=== PATIENT | female | born 1970 | race Caucasian/White ===

== ENCOUNTER → 2017-02-24 | Outpatient (CLI) | payer BC ==
[2013-10-11 21:29] VITALS: BP 108/57
--- NOTE | 2017-02-24 09:14 | KCIC ---
DATE: 02/24/2017. EXAM: MAMMO ALEENA SCREENING BILATERAL. HISTORY: Routine mammographic screening. COMPARISON: 02/24/2016, 02/18/2015, 02/13/2014. This study was interpreted with the benefit of Computerized Aided Detection (CAD). FINDINGS: The breast parenchyma shows scattered fibroglandular densities. Breast parenchyma level B.. A suggested nodule at the posterior margin of the field of view laterally on the left CC view is consistent with parenchyma on the tomographic images. There are no suspicious masses, calcifications or architectural distortion. Parenchymal density is decreased. BI-RADS CATEGORY: 2 BENIGN FINDING(S). RECOMMENDED FOLLOW-UP: 12M 12 MONTH FOLLOW-UP. PQRS compliance statement: Patient information was entered into a reminder system with a target due date 02/24/2018 for the next mammogram. Mammography is a sensitive method for finding small breast cancers, but it does not detect them all and is not a substitute for careful clinical examination. A negative mammogram does not negate a clinically suspicious finding and should not result in delay in biopsying a clinically suspicious abnormality. "Our facility is accredited by the [employer] Mammography [employer]."
== END | disposition home or self-care (01) ==
LOC: KCIC MAMMO 07:56
PROVIDERS: ATTEND Family Medicine
DX: Z12.31 Encounter for screening mammogram for malignant neoplasm of breast (principal)
CPT/HCPCS: 77063; G0202; 77067

== ENCOUNTER → 2018-02-28 | Outpatient (CLI) | payer BC ==
[2013-10-11 21:29] VITALS: BP 108/57
--- NOTE | 2018-02-28 15:17 | KCIC ---
3d digital tomography Bilateral History: Routine screening Technique: Bilateral 3d digital tomographic views were obtained with [employer] and reviewed on a [employer] workstation. In addition, CAD - computer aided detection was utilized. Comparison: February 24, 2016. Findings: Breast Tissue Density C : The breast tissue is heterogeneously dense. Scattered fibroglandular elements may obscure underlying pathology. There are no suspicious masses, microcalcifications or areas of architectural distortion. Impression: No suspicious findings. BI-RADS Category 1: Negative. Normal interval followup. The patient will receive a letter with the results in the mail. Your mammogram demonstrates that you have dense breast tissue, which could hide abnormalities, and if you have other risk factors for breast cancer that have been identified, you might benefit from supplemental screening tests that may be suggested by your ordering physician. Dense breast tissue, in and of itself, is a relatively common condition. This information is not provided to cause undue concern, but rather to raise your awareness and to promote discussion with your physician regarding the presence of other risk factors, in addition to dense breast tissue. A report of your mammography results will be sent to you and your physician. You should contact your physician if you have any questions or concerns regarding this report. A mammogram does not have 100% sensitivity and therefore a negative imaging study should not delay further work up of a suspicious abnormality. Patient information is entered into the [facility] reminder system using [employer] with a target due date for the next screening mammogram. The patient will receive a reminder. "Our facility is accredited by the [employer]amm[employer]." Electronically signed by: Santos Cruz III, MD (02/28/2018 3:14 PM) [id number]
== END | disposition home or self-care (01) ==
LOC: KCIC MAMMO 09:02
PROVIDERS: ATTEND Family Medicine
DX: Z12.31 Encounter for screening mammogram for malignant neoplasm of breast (principal)
CPT/HCPCS: 77063; 77067

== ENCOUNTER → 2019-03-07 | Outpatient (CLI) | payer BC ==
[2013-10-11 21:29] VITALS: BP 108/57
--- NOTE | 2019-03-07 18:40 | KCIC ---
Bilateral digital screening mammograms with 3-D tomosynthesis: Reason for examination: Routine screening. Comparison is made to previous studies dated 02/28/2018 and 02/24/2017. Bilateral mammograms in CC and oblique projections were obtained with 2-D imaging and 3-D tomosynthesis imaging on a Siemens Inspiration unit and reviewed on the workstation. Interpretation was made with the benefit of CAD. The skin and nipples show no abnormalities. No abnormal axillary lymph nodes are seen. The breast parenchyma shows scattered fatty and fibroglandular density. (Breast density: Category B.) There are no dominant masses, suspicious calcifications or architectural distortion. Impression: No evidence of malignancy. Recommend routine screening. BI-RAD Category 2: Benign. "Our facility is accredited by the [employer] Mammography [employer]." This patient's information has been entered into a reminder system for the patient to be notified with the results of her examination and a target date for the next mammogram. Electronically signed by: Day Ordaz MD (03/07/2019 6:37 PM) [id number]
== END | disposition home or self-care (01) ==
LOC: KCIC MAMMO 12:21
PROVIDERS: ATTEND Family Medicine
DX: Z12.31 Encounter for screening mammogram for malignant neoplasm of breast (principal)
CPT/HCPCS: 77063; 77067

== ENCOUNTER → 2020-03-12 | Outpatient (CLI) | payer BC ==
[2013-10-11 21:29] VITALS: BP 108/57
--- NOTE | 2020-03-12 19:42 | KCIC ---
Bilateral digital screening mammograms with 3-D tomosynthesis: Reason for examination: Routine screening. Comparison is made to previous studies dated back to 02/24/2016. Bilateral mammograms in CC and oblique projections were obtained with 2-D imaging and 3-D tomosynthesis imaging on a Siemens Inspiration unit and reviewed on the workstation. Interpretation was made with the benefit of CAD. The skin and nipples show no abnormalities. No abnormal axillary lymph nodes are seen. The breast parenchyma shows scattered fatty and fibroglandular density. (Breast density: Category B.) There is some nodularity posterior inferiorly in the left breast on oblique view which does not persist with tomosynthesis and shows no correlate on cc view. This probably represents superimposition of tissues. There are no other dominant masses, suspicious calcifications or architectural distortion. Impression: No evidence of malignancy. Recommend routine screening. BI-RAD Category 2: Benign. "Our facility is accredited by the [employer] Mammography [employer]." This patient's information has been entered into a reminder system for the patient to be notified with the results of her examination and a target date for the next mammogram. Electronically signed by: Day Ordaz MD (03/12/2020 7:39 PM) [id number]
== END ==
LOC: KCIC MAMMO 12:26
PROVIDERS: ATTEND Obstetrics & Gynecology
DX: Z12.31 Encounter for screening mammogram for malignant neoplasm of breast (principal)
CPT/HCPCS: 77063; 77067

== ENCOUNTER → 2020-11-19 | Outpatient (CLI) | payer BC ==
[2013-10-11 21:29] VITALS: BP 108/57
--- NOTE | 2020-11-19 15:26 | KCIC ---
EXAM: Chest, 2 views. HISTORY: Shortness of air. COMPARISON: None. FINDINGS: 2 views of the chest are obtained. There is no infiltrate, pleural effusion or pneumothorax . The heart is normal in size. IMPRESSION: No acute pulmonary finding. Electronically signed by: Jessica Masters MD (11/19/2020 3:23 PM) [id number]
== END ==
LOC: KCIC 14:53
PROVIDERS: ATTEND Family Medicine
DX: R06.02 Shortness of breath (principal)
CPT/HCPCS: 71046

== ENCOUNTER → 2021-02-10 | Outpatient (CLI) | payer OTHER ==
[2013-10-11 21:29] VITALS: BP 108/57
--- NOTE | 2021-02-10 11:21 | KCIC ---
CT for coronary artery calcium scoring, without IV contrast, 02/10/2021 11:17 AM INDICATION: Reason: Cardiovascular screening. / Spl. Instructions: / History: Technique: Noncontrast CT images through the coronary arteries was performed . Findings: No significant noncardiac findings are identified. Visual inspection of the coronary arteries demonstrates no gross calcification. The remaining coronary arteries are without discernible calcified plaque. The computer-generated calcium scoring utilizing AJ-130 criteria are as follows: Left Main Artery: 0. Left Anterior Descending Artery: 0. Left Circumflex Artery: 0. Right Coronary Artery: 0. The total calcium score is 0. Impression: Your total calcium score is 0. No plaque is present. The chance of significant heart disease is less than 5%, and corresponds to a very low risk for a myocardial infarction Table: 0: No plaque is present. The chance of significant heart disease is less than 5%, and corresponds to a very low risk for a myocardial infarction. 1-10: A small amount of plaque is present. The chance of significant heart disease is less than 10%, and corresponds to a low risk for a myocardial infarction. 11-100: Plaque is present. This correlates with mild heart disease and a moderate risk for a myocardi al infarction. 101-400: A moderate amount of plaque is present. This correlates with heart disease, and a moderate t o high risk for a myocardial infarction. Over 400: A large amount of plaque is present. This correlates with a greater than 90% chance of a h igh grade stenosis. The risk for myocardial infarction is high. CT DOSING PQRS STATEMENT: One or more of the following individualized dose reduction techniques were utilized for this examinat ion: 1. Automated exposure control 2. Adjustment of the mA and/or kV according to patient size 3. Use of iterative reconstruction technique Electronically signed by: Earle Bravo MD (02/10/2021 11:18 AM) [id number]
== END ==
LOC: KCIC CT 10:49
PROVIDERS: ATTEND Obstetrics & Gynecology
DX: Z13.6 Encounter for screening for cardiovascular disorders (principal); R07.9 Chest pain, unspecified; R10.13 Epigastric pain; N71.1 Chronic inflammatory disease of uterus
CPT/HCPCS: 75571

== ENCOUNTER → 2021-02-17 | Outpatient (CLI) | payer BC ==
[2013-10-11 21:29] VITALS: BP 108/57
[~2021-02-17] MED LIST: IOHEXOL 240 MG/ML 50ML VIAL. PO ONE; IOHEXOL 300 MG/ML 100ML VIAL. IV ONE
--- NOTE | 2021-02-17 15:08 | KCIC ---
EXAMINATION: CT ABDOMEN+PELVIS W CLINICAL HISTORY: Epigastric pain, chronic endometriosis. TECHNIQUE: CT of the abdomen and pelvis was performed using standard technique, scanning from just ab ove the dome of the diaphragm to the symphysis pubis following administration of intravenous contrast . CT Dose Reduction Employed: One or more of the following individualized dose reduction techniques wer e utilized for this examination: 1. Automated exposure control 2. Adjustment of the mA and/or kV ac cording to patient size 3. Use of iterative reconstruction technique. COMPARISON: None FINDINGS: Mild dependent bibasilar subsegmental atelectasis. Mildly dilated common bile duct, nonspecific. Minimally distended gallbladder. No intrahepatic biliar y ductal dilation. No calcified stones visualized in the gallbladder or common bile duct. Liver, panc reas, spleen, adrenal glands, and kidneys unremarkable. Mildly filled urinary bladder. Uterus and ovaries unremarkable. No bowel dilation or definite wall thickening. Appendix within normal limits. No abdominal aortic or iliac artery aneurysm. Partially visualized degenerative changes in the thoracic spine. IMPRESSION: Mildly dilated common bile duct without evidence of cholecystitis or choledocholithiasis on limited C T evaluation, nonspecific. Recommend clinical correlation and consider MRCP for further evaluation as indicated. Electronically signed by: Indra Escobar DO (02/17/2021 3:05 PM) [facility]
== END ==
LOC: KCIC CT 09:41
PROVIDERS: ATTEND Obstetrics & Gynecology
DX: K83.8 Other specified diseases of biliary tract (principal); K82.8 Other specified diseases of gallbladder; N71.1 Chronic inflammatory disease of uterus; J98.11 Atelectasis; M47.814 Spondylosis without myelopathy or radiculopathy, thoracic region
CPT/HCPCS: 74177; Q9966; Q9967

== ENCOUNTER → 2021-03-19 | Outpatient (CLI) | payer BC ==
[2013-10-11 21:29] VITALS: BP 108/57
--- NOTE | 2021-03-19 15:43 | KCIC ---
Bilateral digital screening mammograms with 3-D tomosynthesis: Reason for examination: Routine screening. Comparison is made to previous studies dated back to 02/18/2015. Bilateral mammograms in CC and oblique projections were obtained with 2-D imaging and 3-D tomosynthes is imaging on a Siemens Inspiration unit and reviewed on the workstation. Interpretation was made wit h the benefit of CAD. The skin and nipples show no abnormalities. No abnormal axillary lymph nodes are seen. The breast par enchyma shows scattered fatty and fibroglandular density. (Breast density: Category B.) There are no dominant masses, suspicious calcifications or architectural distortion. Impression: No evidence of malignancy. Recommend routine screening. BI-RAD Category 1: Negative. "Our facility is accredited by the [employer] Mammography Program." This patient's information has been entered into a reminder system for the patient to be notified wit h the results of her examination and a target date for the next mammogram. Electronically signed by: Day Ordaz MD (03/19/2021 3:41 PM) [id number]
== END ==
LOC: KCIC MAMMO 14:36
PROVIDERS: ATTEND Obstetrics & Gynecology
DX: Z12.31 Encounter for screening mammogram for malignant neoplasm of breast (principal)
CPT/HCPCS: 77063; 77067